=== PATIENT | female | born 1985 ===

== ENCOUNTER 2016-07-19 20:40 | Emergency (ER) | payer SELFPAY ==
[2016-07-19 21:27] VITALS: BMI 31.8
[2016-07-19 21:57] LABS: RBC URINE 73 /hpf (0-3); URINE BILIRUBIN NEGATIVE (NEGATIVE); URINE BLOOD MODERATE (NEGATIVE); URINE COLOR YELLOW (YELLOW); URINE GLUCOSE (UA) NEG (Normal); URINE KETONE NEGATIVE (NEGATIVE); URINE LEUKOCYTE ESTERASE NEG Leu/uL (Negative); URINE PROTEIN NEGATIVE (NEGATIVE); URINE UROBILINOGEN 0.2-1.0 mg/dL (0.2-1.0); WBC URINE 2 /hpf (0-5)
--- NOTE | 2016-07-30 13:27 | OBHP ---
Datetime: 07/19/2016 21:24 IP Adm Impression: Threatened IP Admit Plan: Observation/Evaluation (Annotations: Data stored by CPN on behalf of user) Admit Comment, IP Provider: Patient is a @ 18.3 wks with reports of vaginal bleeding. Reed ovalles reports she had a few episodes of blood when she wiped since this morning and some cramping. No abilio eliel. No other complaints. No antepartum issues, no other medical problems. On speculum exam no blood noted in the vaginal vault. UA sent down and contamination was noted, no other sign of UTI. No contr actions noted on the monitor. Discussed with patient that no bleeding was found, +FHR present and pat ient did not appear in labor or show signs of chorio. Patient to be discharge home, labor precautions given Pelvic Type - PN: Adequate Extremities - PN: Normal Abdomen - PN: Normal Back - PN: Normal Breast - PN: Normal Lungs - PN: Normal Heart - PN: Normal Thyroid - PN: Normal Neurologic - PN: Normal HEENT - PN: Normal General - PN: Normal FHR - Baseline A Provider: 150 EGA AdmitDate IP: 18.3 Vital Signs Provider: Reviewed; Within Normal Limits IP Chief Complaint: Vaginal bleeding Genitourinary Exam: Normal DTRs - PN: Normal
== END 2016-07-19 22:15 | disposition home or self-care (01) ==
LOC: H.EROB2 20:40
DX: O20.0 Threatened abortion (principal); Z3A.18 18 weeks gestation of pregnancy

== ENCOUNTER 2018-04-27 03:57 | Emergency (ER) | payer SELFPAY ==
[2018-04-27 03:57] VITALS: BMI 31.8
[2018-04-27 04:17] VITALS: O2SAT 99
[2018-04-27] MEDS ORDERED: Sodium Chloride 0.9% 1,000 ML IV STA (04:32)
--- NOTE | 2018-04-27 04:35 | ED PDOC ---
HPI: Abdomen Time Seen by Provider: 04/27/18 04:14 Chief Complaint (Nursing): GI Problem Chief Complaint (Provider): abdominal pain History Per: Patient History/Exam Limitations: no limitations Onset/Duration Of Symptoms: Days (3), Waxing/Waning Current Symptoms Are (Timing): Still Present Location Of Pain/Discomfort: Epigastric Associated Symptoms: Nausea, Vomiting Additional Complaint(s): 32 y/o female presents for evaluation of intermittent abdominal pain x 3 days, worsening as of last night. Associated nausea, vomiting x 4 today. Denies fever, chest pain, shortness of breath, palpitations, changes in bowel movements, urinary symptoms, recent travel, sick contacts. Past Medical History Reviewed: Historical Data, Nursing Documentation, Vital Signs Vital Signs: Last Vital Signs Temp 97.9 F 04/27/18 04:13 Pulse 83 04/27/18 04:13 Resp 16 04/27/18 04:13 BP 114/51 L 04/27/18 04:13 Pulse Ox 99 04/27/18 04:13 - Medical History PMH: No Chronic Diseases Denies: Chronic Kidney Disease - Surgical History Surgical History: Appendectomy - Family History Family History: States: Unknown Family Hx - Immunization History Hx Tetanus Toxoid Vaccination: No Hx Influenza Vaccination: No Hx Pneumococcal Vaccination: No - Home Medications Home Medications: Ambulatory Orders Medication Instructions Recorded Vit Calc,Iron,Folic 1 tab PO DAILY 07/19/16 [ Vitamins] - Allergies Allergies/Adverse Reactions: Allergies Allergy/AdvReac Type Severity Reaction Status Date / Time morphine Allergy VOMITING Verified 07/19/16 21:27 Review of Systems ROS Statement: Except As Marked, All Systems Reviewed And Found Negative Gastrointestinal: Positive for: Nausea, Vomiting, Abdominal Pain Physical Exam - Reviewed Nursing Documentation Reviewed: Yes Vital Signs Reviewed: Yes - Physical Exam Appears: Positive for: Well, Non-toxic, No Acute Distress Head Exam: Positive for: ATRAUMATIC, NORMOCEPHALIC Skin: Positive for: Normal Color Eye Exam: Positive for: Normal appearance ENT: Positive for: Normal ENT Inspection Cardiovascular/Chest: Positive for: Regular Rate, Rhythm Respiratory: Positive for: Normal Breath Sounds Gastrointestinal/Abdominal: Positive for: Bowel Sounds, Soft, Tenderness (epigastric) Back: Positive for: Normal Inspection Extremity: Positive for: Normal ROM Neurologic/Psych: Positive for: Alert, Oriented (x3) - Laboratory Results Result Diagrams: 04/27/18 04:45 04/27/18 04:45 - ECG O2 Sat by Pulse Oximetry: 99 - Progress ED Course And Treament: -upreg -udip -cbc -cmp -lipase -urinalysis -urine c&s -IV NS bolus -IV zofran -IV pepcid ON re-eval, patient states she is still in pain. IV toradol, GI cocktail ordered. RUQ ultrasound ordered Disposition - Clinical Impression Clinical Impression: Abdominal pain - Disposition Disposition Time: 06:00 Condition: STABLE Forms: [facility] (Azeri) Patient Signed Over To: Eric Walters Handoff Comments: pending u/s, PO challenge, re-eval
[2018-04-27 04:55] LABS: BASO % 0.2 % (0.0-2.0); EOS # 0.1 K/uL (0.0-0.7); EOS % 0.9 % (0.0-4.0); LYMPH # 0.7 K/uL (1.0-4.3); LYMPH % 9.1 % (20.0-40.0); MEAN CELL VOLUME 89.2 fl (81.0-99.0); MEAN CORPUSCULAR HEMOGLOBIN 30.1 pg (27.0-31.0); MEAN CORPUSCULAR HGB CONC 33.7 g/dL (33.0-37.0); MEAN PLATELET VOLUME 8.9 fl (7.2-11.7); MONO # 0.5 K/uL (0.0-0.8); MONO % 6.1 % (0.0-10.0); NEUT # 6.8 K/uL (1.8-7.0); NEUT % 83.7 % (50.0-75.0); PLATELET COUNT 226 K/uL (130-400); RBC 4.34 Mil/uL (3.80-5.20); RED CELL DISTRIBUTION WIDTH 12.8 % (11.5-14.5); WHITE BLOOD COUNT 8.1 K/uL (4.8-10.8)
[2018-04-27 05:02] LABS: ALB/GLOB RATIO 1.4 (1.0-2.1); ALBUMIN 4.3 g/dL (3.5-5.0); ALT/SGPT 40 U/L (9-52); AST/SGOT 36 U/L (14-36); BLOOD UREA NITROGEN 14 mg/dl (7-17); CALCIUM 8.9 mg/dL (8.4-10.2); GFR NON-AFRICAN AMERICAN > 60; LIPASE 75 U/L (23-300)
[2018-04-27 05:43] LABS: SQUAMOUS EPITHIAL 17 /hpf (0-5); URINE BILIRUBIN NEGATIVE (NEGATIVE); URINE BLOOD NEGATIVE (NEGATIVE); URINE CLARITY SLIGHTY-CLOUDY (Clear); URINE COLOR YELLOW (YELLOW); URINE GLUCOSE (UA) NEG (NEGATIVE); URINE LEUKOCYTE ESTERASE TRACE Leu/uL (Negative); URINE PROTEIN 100 mg/dL (NEGATIVE)
[2018-04-27] MEDS ORDERED: Alum-Mag Hydrox-Simethicone Susp (30 mL) PO STA (05:47)
[2018-04-27] MEDS ORDERED: Atrop/Hyos/Scop/PhenoB Elixir PO STA (05:47)
[2018-04-27] MEDS ORDERED: Alum-Mag Hydrox-Simethicone Susp (30 mL) ONE (05:57)
--- NOTE | 2018-04-27 06:13 | ED PDOC ---
- Laboratory Results Result Diagrams: 04/27/18 04:45 04/27/18 04:45 Lab Results: Total Bilirubin 0.7 mg/dl (0.2-1.3) 04/27/18 04:45 AST 36 U/L (14-36) 04/27/18 04:45 ALT 40 U/L (9-52) 04/27/18 04:45 Alkaline Phosphatase 104 U/L (38-126) 04/27/18 04:45 Total Protein 7.5 G/DL (6.3-8.2) 04/27/18 04:45 Albumin 4.3 g/dL (3.5-5.0) 04/27/18 04:45 Globulin 3.2 gm/dL (2.2-3.9) 04/27/18 04:45 Albumin/Globulin Ratio 1.4 (1.0-2.1) 04/27/18 04:45 Lipase 75 U/L (23-300) 04/27/18 04:45 Urine Color Yellow (YELLOW) 04/27/18 04:45 Urine Clarity Slighty-cloudy (Clear) 04/27/18 04:45 Urine pH 7.0 (5.0-8.0) 04/27/18 04:45 Ur Specific Thorpe 1.036 (1.003-1.030) H 04/27/18 04:45 Urine Protein 100 mg/dL (NEGATIVE) 04/27/18 04:45 Urine Glucose (UA) Neg mg/dL (NEGATIVE) 04/27/18 04:45 Urine Ketones Negative mg/dL (NEGATIVE) 04/27/18 04:45 Urine Blood Negative (NEGATIVE) 04/27/18 04:45 Urine Nitrate Negative (NEGATIVE) 04/27/18 04:45 Urine Bilirubin Negative (NEGATIVE) 04/27/18 04:45 Urine Urobilinogen 4.0 mg/dL (0.2-1.0) H 04/27/18 04:45 Ur Leukocyte Esterase Trace Yolanda/uL (Negative) 04/27/18 04:45 Urine RBC (Auto) 4 /hpf (0-3) H 04/27/18 04:45 Urine Microscopic WBC 1 /hpf (0-5) 04/27/18 04:45 Ur Squamous Epith Cells 17 /hpf (0-5) H 02/07/19 04:45 - ECG O2 Sat by Pulse Oximetry: 99 - Progress Re-evaluation Time: 07:08 Condition: Improved Medical Decision Making Medical Decision Makin Patient signed out to me pending US results, ER disposition 06 US Abdomen Findings: There is normal in size measuring 15.8 cm. Diffuse increased hepatic echogenicity suggestive of hepatic steatosis. Hypoechoic foci are noted adjacent to the gallbladder fossa suggestive of focal fatty sparing. Nondilated common bile duct measuring 5.3 mm. Unremarkable right kidney measuring 10.8x5.9x5.7 cm. Mild fullness of the right renal pelvis. Unremarkable gallbladder. Impression: No evidence of cholelithiasis or acute cholecystitis Scribe Attestation: Documented by Brinda Joshua acting as a scribe for Eric Walters MD. Provider Attestation: All medical record entries made by the Scribe were at my direction and personally dictated by me. I have reviewed the chart and agree that the record accurately reflects my personal performance of the history, physical exam, medical decision making, and the department course for this patient. I have also personally directed, reviewed, and agree with the discharge instructions and disposition. Disposition - Clinical Impression Clinical Impression: Abdominal pain, Gastritis - POA Present On Arrival: None - Disposition Referrals: [facility] [place] [Outside] Disposition: Routine/Home Disposition Time: 07:09 Condition: FAIR Prescriptions: Famotidine [Pepcid] 20 mg PO Q12 #20 tab Instructions: Gastritis Forms: [facility] [employer] (Syrian) Print Language: UPPER SORBIAN
[2018-04-27 06:16] LABS: BANDS 2 % (0-2); LYMPHOCYTE 9 % (20-50); MONOCYTE 4 % (0-10); NEUTROPHIL 85 % (42-75); PLATELET ESTIMATE NORMAL (NORMAL); TOTAL CELLS COUNTED 100
[2018-04-27 06:18] LABS: HYPOCHROMIC SLIGHT; TARGET CELLS SLIGHT
[2018-04-27 07:17] VITALS: BP 100/59; PULSE 64; RESP 17; TEMP 97.8
--- NOTE | 2018-04-27 09:22 | US ---
Date of service: 04/27/2018 HISTORY: upper abd pain, vomiting COMPARISON: None. TECHNIQUE: Sonographic evaluation of the right upper quadrant of the abdomen. FINDINGS: LIVER: Measures 15.8 cm in length. Diffusely increased echogenicity of the liver parenchyma. Consistent with fatty infiltration. Two small geometric hypoechoic foci adjacent to gallbladder, most likely representing focal fatty sparing. These measure approximately 7 mm each in greatest dimension. No other mass. No biliary dilatation. Smooth contour. Normal hepatopetal portal venous flow. GALLBLADDER: Unremarkable. No gallstones. COMMON BILE DUCT: Measures mm. No stones. No dilatation. PANCREAS: 5 RIGHT KIDNEY: Measures 10.8 cm in length. Normal echogenicity. No calculus, mass, or hydronephrosis. AORTA: No aneurysmal dilatation. IVC: Unremarkable. OTHER FINDINGS: None . IMPRESSION: Fatty infiltration of the liver. Probable small foci of focal fatty sparing adjacent to the gallbladder fossa. No evidence of cholelithiasis or cholecystitis.
== END 2018-04-27 07:20 | disposition home or self-care (01) ==
LOC: H.ER 03:57
DX: R10.9 Unspecified abdominal pain (principal); K29.70 Gastritis, unspecified, without bleeding
CPT/HCPCS: 76705; 80053; 81003; 81025; 83690; 85025; 87086; 96361; 96374; 96375; 99283; J1885; J2405; J7030